=== PATIENT | female | born 1985 | race American Indian/Alaskan Native ===

== ENCOUNTER 2016-07-30 14:34 | Emergency (ER) | payer OTHER, BC ==
[2016-07-30 14:52] VITALS: BMI 30.9
[2016-07-30 14:58] VITALS: O2SAT 99
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
--- NOTE | 2016-07-30 16:09 | RAD ---
PROCEDURE: Cervical Spine Radiographs. HISTORY: Pain. COMPARISON: None available. FINDINGS: BONES: Straightening of the normal cervical lordosis may be related to muscle spasm or positioning. No acute displaced fracture identified. Dens tip obscured. DISC SPACES: Unremarkable. SOFT TISSUES: Unremarkable. No prevertebral soft tissue swelling. OTHER FINDINGS: None. IMPRESSION: Straightening of the normal cervical lordosis may be related to muscle spasm or positioning. No acute displaced fracture identified. Dens tip obscured.
[2016-07-30 17:33] VITALS: BP 126/76; PULSE 77; RESP 16; TEMP 98
== END 2016-07-30 17:34 | disposition home or self-care (01) ==
LOC: C.ER 14:34
DX: S60.221A Contusion of right hand, initial encounter (principal); S16.1XXA Strain of muscle, fascia and tendon at neck level, initial encounter; V43.52XA Car driver injured in collision with other type car in traffic accident, initial encounter; Y92.410 Unspecified street and highway as the place of occurrence of the external cause